=== PATIENT | female | born 1960 | race Hispanic/Latino ===

== ENCOUNTER 2018-01-06 14:19 | Emergency (ER) | payer OTHER ==
[2018-01-06 14:30] VITALS: TEMP 97; O2SAT 100
--- NOTE | 2018-01-06 15:40 | ED PDOC ---
HPI: Chest Pain Time Seen by Provider: 01/06/18 15:09 Chief Complaint (Nursing): Chest Pain Chief Complaint (Provider): Chest Pain History Per: Patient History/Exam Limitations: no limitations Onset/Duration Of Symptoms: Days (x7) Current Symptoms Are (Timing): Still Present Additional Complaint(s): 57 year old female, with a past medical history of arthritis, presents to the ED with complaints of chest pain, onset one week. Patient reports of pain as a left sided discomfort that radiates to the left shoulder that does not worsen with movement. Patient states that today she felt a "jumping feeling" in the left side of chest. Patient admits to taking 2 baby Asprins prior to arrival but does not feel any change in symptoms. Patient has a family medical history of cardiac disease. Patient reports her brother at the age of 50 with a heart attack, father had cancer of the throat and neck and also in his 50s. mother has a history of HTN and heart disease. Denies shortness of breath, cough, fever, trauma, dizziness/lightheadedness, leg swelling. PMD: Dr. Jules Major Past Medical History Reviewed: Historical Data, Nursing Documentation, Vital Signs Vital Signs: Last Vital Signs Temp 97 F L 01/06/18 14:29 Pulse 65 01/06/18 16:49 Resp 21 01/06/18 16:49 BP 126/82 01/06/18 16:49 Pulse Ox 100 01/06/18 16:49 - Medical History PMH: Arthritis - Surgical History Surgical History: No Surg Hx - Family History Family History: States: CAD, Hypertension - Social History Current smoker - smoking cessation education provided: No Alcohol: Occasional Drugs: Denies - Home Medications Home Medications: Ambulatory Orders Medication Instructions Recorded Cyclobenzaprine [Flexeril] 5 mg PO Q8 PRN #10 tab 01/06/18 Naproxen [Naprosyn] 1 tab PO BID PRN #30 tab 01/06/18 Omeprazole Magnesium [Prilosec Otc] 20 mg PO DAILY #14 tcp 01/06/18 - Allergies Allergies/Adverse Reactions: Allergies Allergy/AdvReac Type Severity Reaction Status Date / Time No Known Allergies Allergy Verified 01/06/18 14:29 Review of Systems ROS Statement: Except As Marked, All Systems Reviewed And Found Negative Constitutional: Negative for: Fever Cardiovascular: Positive for: Chest Pain (left sided discomfort radiating to left shoulder) Respiratory: Negative for: Cough, Shortness of Breath Musculoskeletal: Positive for: Back Pain (left shoulder pain radiating from chest pain ). Negative for: Leg Pain Neurological: Negative for: Dizziness Physical Exam - Reviewed Nursing Documentation Reviewed: Yes Vital Signs Reviewed: Yes - Physical Exam Appears: Positive for: Well, No Acute Distress - Laboratory Results Result Diagrams: 01/06/18 16:04 01/06/18 16:04 - ECG ECG Rhythm: Positive for: Normal QRS, Normal ST Segment, Sinus Rhythm, Sinus Bradycardia Rate: 58 (Sinus Bradycardia ) O2 Sat by Pulse Oximetry: 100 (RA) Pulse Ox Interpretation: Normal Medical Decision Making Medical Decision Making: Time: 1517 Impression: Chest pain, low risk MACE per HEART score Differentials include but not limited to costochondritis, muscle spasm, and PE Plan: -- EKG -- B-Type Natriuretic -- CMP -- Magnesium -- Phosphorus -- Thyroid Stimulation -- Troponin I -- ED Urine Dipstick -- CBC with differentials -- D Dimer -- PTT -- Prothrombin Time -- CXR Two Views -- Welder Boilermaker -- IV Insertion Time: 1607 -- CXR results show no infiltration, no effusion, no acute findings. 1700 Labs unremarkable. DW pt findings and risk of ACS. Trial of toradol and flexeril. 1800 Repeat EKG NSR (60), Normal ST segments. On reeval pt feels better, stable for dc. Scribe Attestation: Documented by Sana Velasquez, acting as a scribe for Dr. Abigail Macias. Provider Scribe Attestation: All medical record entries made by the Scribe were at my direction and personally dictated by me. I have reviewed the chart and agree that the record accurately reflects my personal performance of the history, physical exam, medical decision making, and the department course for this patient. I have also personally directed, reviewed, and agree with the discharge instructions and disposition. Disposition - Clinical Impression Clinical Impression: Chest pain - Disposition Referrals: [facility] [Outside] Jules Major MD [Family Provider] - 01/08/18 Disposition: Routine/Home Disposition Time: 19:00 Condition: IMPROVED Additional Instructions: FOLLOW UP WITH DR MAJOR MONDAY FOR FURTHER EVALUATION Prescriptions: Cyclobenzaprine [Flexeril] 5 mg PO Q8 PRN #10 tab PRN Reason: muscle spasm Naproxen [Naprosyn] 1 tab PO BID PRN #30 tab PRN Reason: Pain Omeprazole Magnesium [Prilosec Otc] 20 mg PO DAILY #14 tcp Instructions: Chest Pain (DC) Forms: [facility] (Latvian)
[2018-01-06 16:08] LABS: BASO # 0.1 K/uL (0.0-0.2); BASO % 0.8 % (0.0-2.0); EOS # 0.1 K/uL (0.0-0.7); EOS % 1.4 % (0.0-4.0); HEMOGLOBIN 13.4 g/dL (12.0-16.0); LYMPH % 24.8 % (20.0-40.0); MEAN CELL VOLUME 92.4 fl (81.0-99.0); MEAN CORPUSCULAR HEMOGLOBIN 31.9 pg (27.0-31.0); MEAN CORPUSCULAR HGB CONC 34.6 g/dL (33.0-37.0); MEAN PLATELET VOLUME 7.6 fl (7.2-11.7); MONO # 0.4 K/uL (0.0-0.8); MONO % 4.9 % (0.0-10.0); NEUT # 5.4 K/uL (1.8-7.0); NEUT % 68.1 % (50.0-75.0); RBC 4.19 Mil/uL (3.80-5.20); RED CELL DISTRIBUTION WIDTH 13.3 % (11.5-14.5)
[2018-01-06 16:21] LABS: ALB/GLOB RATIO 1.4 (1.0-2.1); ALBUMIN 4.2 g/dL (3.5-5.0); ALT/SGPT 38 U/L (9-52); AST/SGOT 29 U/L (14-36); BLOOD UREA NITROGEN 23 mg/dl (7-17); CALCIUM 9.1 mg/dL (8.4-10.2); GFR AFRICAN-AMERICAN > 60; GFR NON-AFRICAN AMERICAN > 60
[2018-01-06 16:24] LABS: PROTHROMBIN TIME 10.7 Seconds (9.8-13.1)
[2018-01-06 16:25] LABS: PARTIAL THROMBOPLASTIN TIME 31.2 Seconds (25.6-37.1)
--- NOTE | 2018-01-06 16:28 | RAD ---
HISTORY: chest pain COMPARISON: No prior. TECHNIQUE: Chest PA and lateral FINDINGS: LUNGS: No active pulmonary disease. PLEURA: No significant pleural effusion identified. No pneumothorax apparent. CARDIOVASCULAR: Normal. OSSEOUS STRUCTURES: No significant abnormalities. VISUALIZED UPPER ABDOMEN: Normal. OTHER FINDINGS: None. IMPRESSION: No active disease.
[2018-01-06 16:32] LABS: B-TYPE NATRIURETIC PEPTIDE 87.3 pg/ml (0-900)
[2018-01-06 16:57] VITALS: BP 126/82; RESP 21
[2018-01-06 18:24] VITALS: PULSE 61
--- NOTE | 2018-01-08 06:30 | CARD ---
APPROVED REPORT EKG Measurement Heart [id number] <Conclusion> Normal sinus rhythm Normal ECG
--- NOTE | 2018-01-08 06:35 | CARD ---
APPROVED REPORT EKG Measurement Heart [id number] <Conclusion> Sinus bradycardia Low voltage QRS Incomplete right bundle branch block Borderline ECG
== END 2018-01-06 18:22 | disposition home or self-care (01) ==
LOC: H.ER 14:19
DX: R07.89 Other chest pain (principal); M19.90 Unspecified osteoarthritis, unspecified site
CPT/HCPCS: 71046; 80053; 83735; 83880; 84100; 84443; 84484; 85025; 85378; 85610; 85730; 93005; 96374; 99285; J1885